=== PATIENT | female | born 1960 | race Caucasian/White ===

== ENCOUNTER 2019-03-27 01:13 | Inpatient (IN) | payer BC ==
[2019-03-27] MEDS ORDERED: methylPREDNISolone 125 MG* 2 ML VIAL IV ONE (01:59)
[2019-03-27] MEDS ORDERED: Albuterol 0.5% CONC NEB.SOL* 5 MG/ML 20 ml BOT INH ONE (01:59)
[2019-03-27] MEDS ORDERED: LORazepam INJ* 2 MG/ML 1 ML VIAL IV PUSH ONE (01:59)
[2019-03-27] MEDS ORDERED: Lorazepam PYXIS KEY PRN ×2 (02:00→05:09)
--- NOTE | 2019-03-27 02:04 | ED ---
Shortness of Breath - HPI Summary HPI Summary: Pt is a 58 y/o F presenting to the ED with a chief complaint of shortness of breath first onset 03/25/19. She had a pretty bad cold onset that date, and today they came up to [facility] to clean their cottage, and had more breathing issues after that. She currently reports nausea, chills, cough, and anxiety associated with the shortness of breath. She denies fever, as well as hx of asthma or COPD. She is a current every day smoker. - History of Current Complaint Chief Complaint: EDShortnessOfBreath Time Seen by Provider: 03/27/19 01:55 Hx Obtained From: Patient, Family/Bone Grinder Onset/Duration: Sudden Onset, Lasting Days, Still Present Timing: Constant Current Severity: Moderate Dyspnea At: Rest Aggrevating Factors: Nothing Alleviating Factors: Nothing Associated Signs & Symptoms: Cough (Nonproductive), Chills - Allergy/Home Medications Allergies/Adverse Reactions: Allergies Allergy/AdvReac Type Severity Reaction Status Date / Time No Known Allergies Allergy Verified 03/27/19 01:22 Home Medications: Home Medications NK [No Home Medications Reported] 03/27/19 [History Confirmed 03/27/19] PMH/Surg Hx/FS Hx/Imm Hx Previously Healthy: Yes Endocrine/Hematology History: Denies: Hx Diabetes Respiratory History: Denies: Hx Asthma, Hx Chronic Obstructive Pulmonary Disease (COPD) Infectious Disease History: No Infectious Disease History: Denies: Traveled Outside the [place] in Last 30 Days - Family History Known Family History: Negative: Diabetes - Social History Alcohol Use: Weekly Hx Substance Use: No Substance Use Type: Reports: None Hx Tobacco Use: Yes Smoking Status (MU): Heavy Every Day Tobacco Smoker Review of Systems Positive: Chills. Negative: Fever Positive: Shortness Of Breath Positive: Nausea Positive: Anxious All Other Systems Reviewed And Are Negative: Yes Physical Exam - Summary Physical Exam Summary: Appearance: Well-appearing, Well-nourished, lying in bed comfortably Skin: Warm, dry, no obvious rash Eyes: sclera anicteric, no conjunctival pallor ENT: mucous membranes moist, pharynx appears normal Neck: Supple, nontender Respiratory: Bilateral wheezes Cardiovascular: Normal S1, S2. No murmurs. Normal distal pulses in tibial and radial bilaterally. Abdomen: Soft, nontender, normal active bowel sounds present Musculoskeletal: Normal, Strength/ROM Intact Neurological: A&Ox3, awake and alert, mentation is normal, speech is fluent and appropriate Psychiatric: affect is normal, does not appear anxious or depressed Triage Information Reviewed: Yes Vital Signs On Initial Exam: Initial Vitals Temp Pulse Resp BP Pulse Ox 98.2 F 110 22 164/105 84 03/27/19 01:15 03/27/19 01:15 03/27/19 01:15 03/27/19 01:15 03/27/19 01:15 Vital Signs Reviewed: Yes Diagnostics - Vital Signs Vital Signs Temp Pulse Resp BP Pulse Ox 03/27/19 01:24 93 03/27/19 01:15 98.2 F 110 22 164/105 84 - Laboratory Result Diagrams: 03/30/19 05:42 03/30/19 05:42 Lab Statement: Any lab studies that have been ordered have been reviewed, and results considered in the medical decision making process. - Radiology CXR Radiology Interpretation Completed By: ED Physician Summary of Radiographic Findings: No acute process. Pending official radiology report. - EKG 0156 Cardiac Rate: Tachycardia - 115bpm EKG Rhythm: Sinus Tachycardia ST Segment: Normal Ectopy: None Summary of EKG Findings: EKG at 0156 shows sinus tachycardia but is otherwise normal. Artifacts present in various leads d/t pt breathing. No STEMI. Course/Dx - Course Course Of Treatment: Pt is a 58 y/o F presenting to the ED with a chief complaint of shortness of breath first onset 03/25/19. She currently reports nausea, chills, and anxiety associated with the shortness of breath. She denies fever, as well as hx of asthma or COPD. She is a current every day smoker. EKG at 0156 shows sinus tachycardia but is otherwise normal. Artifacts present in various leads d/t pt breathing. No STEMI. CXR shows no acute process, pending official radiology report. In the ED course, the pt was given breathing treatments as well as Lorazepam to alleviate her anxiety. I spoke to Dr. Delacruz at 0342 about the pt's condition who will be accepting her to [facility] with a dx of COPD. - Diagnoses Provider Diagnoses: COPD (chronic obstructive pulmonary disease), COPD exacerbation Discharge - Sign-Out/Discharge Documenting (check all that apply): Patient Departure Patient Received Moderate/Deep Sedation with Procedure: No - Discharge Plan Condition: Stable Disposition: ADMITTED TO [facility] - Billing Disposition and Condition Condition: STABLE Disposition: Admitted to [facility] - Attestation Statements Document Initiated by Alyssa: Yes Documenting Scribe: Dalia Reardon Provider For Whom Alyssa is Documenting (Include Credential): Romeo Carias MD. Scribe Attestation: I, Dalia Reardon, scribed for Romeo Carias MD. on 03/31/19 at 0408. Scribe Documentation Reviewed: Yes Provider Attestation: The documentation as recorded by the Dalia alexander accurately reflects the service I personally performed and the decisions made by me, Romeo Carias MD. Status of Scribe Document: Viewed Consult Consult: I spoke to Dr. Delacruz at 0342 about the pt's condition who will be accepting her to [facility] with a dx of COPD.
[2019-03-27] MEDS ORDERED: Lorazepam PYXIS KEY ONE (02:05)
[2019-03-27 02:20] LABS: ABS Lymphocytes 0.7 10^3/ul (1.0-4.8); ABS Monocytes 0.5 10^3/ul (0-0.8); ABS Neutrophils 10.4 10^3/ul (1.5-7.7); Eosinophil % 0.2 %; Hematocrit 44 % (35-47); Hemoglobin 14.9 g/dL (12.0-16.0); Lymphocyte % 5.9 %; Mean Corpuscular HGB Conc 34 g/dL (31-36); Mean Corpuscular Hemoglobin 33 pg (27-31); Mean Corpuscular Volume 98 fL (80-97); Mean Platelet Volume 7.1 fL (7.4-10.4); Platelet Count 262 10^3/uL (150-450); Red Blood Count 4.51 10^6 /uL (3.70-4.87); Red Cell Distribution Width 13 % (10.5-15); White Blood Count 11.5 10^3/uL (3.5-10.8)
[2019-03-27 02:44] LABS: Albumin 4.7 g/dL (3.2-5.2); Albumin/Globulin Ratio 1.4 (1-3); BUN/Creatinine Ratio 16.7 (8-20); Calcium 9.2 mg/dL (8.6-10.3); EGFR African American 186.9 (>60); EGFR Non-African American 154.4 (>60); Globulin 3.3 g/dL (2-4); Potassium 3.8 mmol/L (3.5-5.0); Total Bilirubin 0.3 mg/dL (0.2-1.0)
[2019-03-27 02:46] LABS: Troponin I 0.01 ng/mL (<0.04)
[2019-03-27] MEDS ORDERED: Azithromycin 500 mg/250 ml NS 500 MG/250 ML BAG IVPB ONE (05:01)
[2019-03-27] MEDS ORDERED: LORazepam INJ* 2 MG/ML 1 ML VIAL IV PUSH PRN (05:09)
[2019-03-27] MEDS ORDERED: Nicotine* 4MG (FRUIT FLAVOR) GUM PO PRN (05:14)
[2019-03-27] MEDS ORDERED: Iohexol 350* (CONTRAST) 500 ML MDV IV ONE (05:32)
[2019-03-27] MEDS: cefTRIAXone(*) 1 GM in NS 0.9% 50 ML* 50 ML IVPB SCH (06:01)
[2019-03-27] MEDS: Enoxaparin(*) 40 MG/0.4 ML SYR SUBCUT SCH (06:07)
[2019-03-27] MEDS ORDERED: Acetaminophen TAB* 325 MG PO PRN (06:47)
[2019-03-27] MEDS ORDERED: Ondansetron INJ* 2 MG/ML VIAL IV PRN (06:47)
[2019-03-27] MEDS: Albuterol 2.5 MG/3 ML NEB.SOL* (0.083%) INH SCH ×5 (06:56→23:06)
--- NOTE | 2019-03-27 08:12 | HP ---
HISTORY AND PHYSICAL: DATE OF ADMISSION: 03/27/19 PROVIDER: Virgilio Monk NP ATTENDING PHYSICIAN: Dr. Bri Delacruz* (dictated by Virgilio Monk NP) PRIMARY CARE PROVIDER: None. She does report that Mariel Alaniz is her OB-EGG SEPARATOR. CHIEF COMPLAINT: Weakness, anxiety, sore throat. HISTORY OF PRESENT ILLNESS: Ms. Dumas is a 58-year-old female with no known medical history other than lumpectomy, who presented to the ER overnight, was concerned for subjective fever and chills, productive cough, and increased anxiety. The history is supplemented by the patient's family, as she is initially somewhat slow to respond and tachypneic. Over the course of the evaluation, she became more alert and was able to answer more appropriately and more consistently with her baseline. She is accompanied by her , Jamal and her sons Rafy and Horacio. Per the patient and her family, she started with the reported sore throat on Friday evening. This progressed into a productive cough. On Friday, the family went to their cottage in [place], though they are originally from [place], and [facility] She progressed to having alternating chills and hot flashes as well as having nausea, increased anxiety, and weakness. Her family brought her in for further evaluation. When she presented to the ER, she had an oxygen level of 84% on room air. She was placed on oxygen via nasal cannula. Prior to contacting the hospitalist, the patient was escalated the Vapotherm due to increased work of breathing. She had received IV methylprednisolone and lorazepam as well as a nebulizer treatment. She reports mild improvement on the Vapotherm. PAST MEDICAL HISTORY: She denies any known history. Her reports that she had 2 C-sections, one in 1980 and 1987 and a history of a lumpectomy in 1995. HOME MEDICATIONS: None. ALLERGIES: No known allergies. FAMILY HISTORY: She is unable to provide at this time. SOCIAL HISTORY: She is a current everyday smoker. She reports a smoking history of 40 years or more. She reports that she smoked half a pack a day, but her states that it is close to 2 packs per day. She report occasional alcohol use. Denies any illicit drug use. She works at a school. She is . She has children, her sons were accompanying her. Her Jamal is her surrogate decision maker in the event of emergency. REVIEW OF SYSTEMS: A 12-point review of systems was attempted and obtained. All pertinent positives and negatives as per the HPI. All those not mentioned are negative. PHYSICAL EXAMINATION GENERAL: This is a middle-aged, female sitting up in the ED stretcher at approximately 90 degrees. She is tachypneic even while resting and appears to be in mild distress. VITAL SIGNS: Temperature 100.3, pulse rate 102, respiratory rate 28, O2 saturation is 97% on Vapotherm at 40 L with 60% O2, blood pressure is 151/80. HEENT: Head is atraumatic, normocephalic. Pupils are equal and round. Extraocular movements are intact. Oral mucosa is moist. Oropharynx appears within normal limits with no erythema or exudates. NECK: Supple with full range of motion. No lymphadenopathy appreciated. No JVD noted. CARDIAC: Normal S1, S2. Heart sounds regular rate and rhythm. She is tachycardic. No murmurs appreciated. No peripheral edema noted. Peripheral pulses are intact and equal bilaterally in the upper or lower extremities. RESPIRATORY: There is fair aeration throughout all lung bradshaw. Lung sounds are tight with inspiratory and expiratory wheezing noted. ABDOMEN: Soft, nontender, nondistended with normoactive bowel sounds. There is no hepatosplenomegaly. There is no guarding or rebound tenderness. MUSCULOSKELETAL: There is no clubbing or cyanosis. There is full range of motion in all 4 extremities. SKIN: Warm and dry and grossly intact. NEURO: She is alert and oriented x3. Mentation improved over the course of the conversation. Speech is clear though difficult due to tachypnea. PSYCH: She is anxious, but affect is appropriate. DIAGNOSTIC STUDIES/LAB DATA: CBC: WBC 11.5, hemoglobin 14.9, hematocrit 44, platelet count 262. CMP: Sodium 131, potassium 3.8, chloride 97, carbon dioxide 24, BUN 7, creatinine 0.42, glucose 135, lactic acid 1.7, calcium 9.2. Total bilirubin 0.3, AST 21, ALT 13, alk phos 77. Troponin 0.01. Chest x-ray reviewed, lungs show hyperinflation, no acute process is noted with review report is pending. EKG reviewed and shows sinus tachycardia. No evidence of ST or T-wave changes to indicate acute ischemia. There are no old medical records for review. ASSESSMENT AND PLAN: This is a 58-year-old female with no known past medical history other than remote history of lumpectomy, who presents today with concern for shortness of breath that is progressively worsening and acute hypoxic respiratory failure. She is currently on Vapotherm. I did discuss with her and her family that the goal would due to decrease her work of breathing as well as maintain appropriate oxygenation and gas exchange. For this reason, we will continue her on Vapotherm and move her to the ICU. 1. Acute hypoxic respiratory failure, suspect chronic obstructive pulmonary disease exacerbation. She has not been officially diagnosed with chronic obstructive pulmonary disease, she has never had spirometry performed. With her x- ray and symptoms this does seem to consistent with chronic obstructive pulmonary disease exacerbation in any event. She had concern for acute hypoxic respiratory failure and is now on Vapotherm. She would likely benefit from BiPAP, however, she appears anxious and somewhat resistant to the high flow nasal cannula and does not want to try BiPAP at this time. She has quite a bit of anxiety about being here in the hospital and was very astounded when told she would have to go to the ICU. We did discuss that if her breathing continues to progressively worsen or fails to respond to the current therapies and medications, that we would need to consider BiPAP or perhaps mechanical ventilation. She appears to be very against the mechanical ventilation and this is very upsetting for her. Her family did listen to the conversation and would be open to discussing this further if needed. She is in agreement to continue with the Vapotherm high flow nasal cannula and the steroids and nebulizer treatments. In regards to other supportive care, she is ordered nebulizer treatment and steroids. She will receive these around the clock. There is also p.r.n. Ativan to be utilized for anxiety. CTA of the chest would be indicated, given the acuity of her illness and level of her distress.. She has a low Wells' criteria for pulmonary embolism with a 1.3% risk, however, given her tachycardia and other symptoms. as well as her lack of medical care and evaluation, it will be beneficial to get a baseline CT and I will include contrast to fully evaluate the lungs. In the event, she is unable to tolerate laying flat, we will downgrade this test to a CT of the chest. I will also cover her for pneumonia. It may be that she is presenting and is not yet capturing on the x-ray though she does have a bit of a white count and again she is quickly decompensating in the few hours of time that she has been here. We will start her on azithromycin and ceftriaxone, this can be escalated as needed, but may also be deescalated if not needed. I will also order her guaifenesin ER and we will check a strep pneumo and legionella urine antigen. I would also like to get a baseline ABG given that she is on Vapotherm and may be requiring BiPAP as well. This has all been reviewed with her family and the patient. 2. Nicotine dependence. She has an extensive smoking history. Approximately 5 to 10 minutes were spent in counseling with the patient and her family regarding smoking and decreasing her risk for continued symptoms by quitting smoking. We discussed the effects are cumulative and that benefit could still be gained from quitting smoking. During her admission here, she will be ordered nicotine replacement therapy and smoking cessation education. 3. FEN. She is ordered a regular diet. 4. DVT prophylaxis. She is ordered subcu Lovenox. 5. Code status. She is a full code. She clearly has stated that she does not want intubation, but her family would like to further discuss this with her when she is less agitated. At this time, she remains a full code, which is appropriate. 6. Disposition. She will be admitted as an inpatient with an expected length of stay of 3 to 5 days given the severity of her respiratory failure and symptoms at this time. TIME SPENT: Approximately 75 minutes was spent on this admission, which includes collecting history and performing physical assessment, physical examination, reviewing the plan of care, and plan of care updates with the patient and her family. Plan of care was also reviewed with my attending, Dr. Bri Delacruz, who is in agreement. VIRGILIO MONK, HERNÁN [id number]/[facility] #: [id number] MOLLY
[2019-03-27] MEDS: guaiFENesin ER TAB 600 MG PO SCH ×2 (09:18→20:25)
[2019-03-27] MEDS: Nicotine PATCH 21 MG/24 HR* PATCH TRANSDERM SCH (09:49)
[2019-03-27] MEDS: methylPREDNISolone SOD 40 MG* 1 ML VIAL IV SCH (14:09)
[2019-03-27] MEDS ORDERED: Albuterol/Ipratropium NEB.SOL* Albuterol 2.5 MG/Ipratropium 0.5 MG 3 ML INH PRN (15:19)
--- NOTE | 2019-03-27 15:22 | PN ---
Hospitalist Progress Note Date of Service: 03/27/19 Pt examined at bedside Feels better.Continue Steroids and Antibiotics.Plan per h and p dictated a few hours ago Will switch to PO ativan prn for anxiety Ct findings discussed Will need outpatient f/u for lung nodules and poss thyroid nodule
[2019-03-27] MEDS: LORazepam TAB(*) 0.5 MG PO PRN (15:58)
[2019-03-27] MEDS: Nicotine Patch Removal NOTE PATCH OFF SCH (20:26)
[2019-03-28] MEDS: methylPREDNISolone SOD 40 MG* 1 ML VIAL IV SCH ×2 (02:13→14:52)
[2019-03-28] MEDS: LORazepam TAB(*) 0.5 MG PO PRN ×3 (02:34→23:15)
[2019-03-28] MEDS: Albuterol 2.5 MG/3 ML NEB.SOL* (0.083%) INH SCH ×4 (03:19→19:09)
[2019-03-28] MEDS: cefTRIAXone(*) 1 GM in NS 0.9% 50 ML* 50 ML IVPB SCH (05:38)
[2019-03-28] MEDS: Enoxaparin(*) 40 MG/0.4 ML SYR SUBCUT SCH (05:43)
[2019-03-28 06:02] LABS: ABS Lymphocytes 0.6 10^3/ul (1.0-4.8); ABS Monocytes 0.3 10^3/ul (0-0.8); ABS Neutrophils 11.3 10^3/ul (1.5-7.7); Hematocrit 41 % (35-47); Hemoglobin 13.8 g/dL (12.0-16.0); Lymphocyte % 4.8 %; Mean Corpuscular HGB Conc 34 g/dL (31-36); Mean Corpuscular Hemoglobin 33 pg (27-31); Mean Corpuscular Volume 98 fL (80-97); Mean Platelet Volume 7.6 fL (7.4-10.4); Platelet Count 247 10^3/uL (150-450); Red Blood Count 4.18 10^6 /uL (3.70-4.87); Red Cell Distribution Width 13 % (10.5-15); White Blood Count 12.1 10^3/uL (3.5-10.8)
[2019-03-28] MEDS: Azithromycin IV(*) 250 MG in NS 0.9% 250 ML* 250 ML IVPB SCH (06:07)
[2019-03-28 06:18] LABS: BUN/Creatinine Ratio 36.4 (8-20); Calcium 9.5 mg/dL (8.6-10.3); EGFR African American 177.1 (>60); EGFR Non-African American 146.4 (>60); Potassium 4.3 mmol/L (3.5-5.0)
[2019-03-28] MEDS: Nicotine PATCH 21 MG/24 HR* PATCH TRANSDERM SCH (09:02)
[2019-03-28] MEDS: guaiFENesin ER TAB 600 MG PO SCH (09:02)
--- NOTE | 2019-03-28 15:17 | PN ---
Subjective Date of Service: 03/28/19 Interval History: Reports improvement in breathing.Still on vapotherm Objective Active Medications: Acetaminophen (Tylenol Tab*) 650 mg PO Q4H PRN PRN Reason: FEVER/PAIN Albuterol (Ventolin 2.5 Mg/3 Ml Neb.Margarita*) 2.5 mg INH RT.[id number] AWAKE [facility] Last Admin: 03/28/19 13:00 Dose: 2.5 mg Albuterol/Ipratropium (Duoneb (Albuterol 2.5 Mg/Ipratropium 0.5 Mg)) 1 neb INH Q4H PRN PRN Reason: SOB/WHEEZING Enoxaparin Sodium (Lovenox(*)) 40 mg SUBCUT Q24H [facility] Last Admin: 03/28/19 05:43 Dose: 40 mg Guaifenesin (Mucinex*) 1,200 mg PO BID [facility] Last Admin: 03/28/19 09:02 Dose: 1,200 mg Azithromycin 250 mg/ Sodium (Chloride) 250 mls @ 250 mls/hr IVPB Q24H [facility] Last Admin: 03/28/19 06:07 Dose: 250 mls/hr Ceftriaxone Sodium 1 gm/ (Sodium Chloride) 50 mls @ 200 mls/hr IVPB Q24H [facility] Last Admin: 03/28/19 05:38 Dose: 200 mls/hr Lorazepam (Ativan Tab(*)) 0.5 mg PO Q4H PRN PRN Reason: ANXIETY Last Admin: 03/28/19 14:52 Dose: 0.5 mg Methylprednisolone Sodium Succinate (Solu-Medrol 40 Mg) 60 mg IV Q12H [facility] Last Admin: 03/28/19 14:52 Dose: 60 mg Miscellaneous (Ativan Pyxis Williamson) 1 ea N/A .ATIVAN IV WILLIAMSON PRN PRN Reason: PYXIS WILLIAMSON Miscellaneous (Ativan Pyxis Williamson) 1 ea N/A .ATIVAN IV WILLIAMSON PRN PRN Reason: PYXIS WILLIAMSON Nicotine (Nicotine Patch 21 Mg/24 Hr*) 1 patch TRANSDERM DAILY@0800 [facility] Last Admin: 03/28/19 09:02 Dose: 1 patch Nicotine Polacrilex (Nicotine Gum*) 4 mg PO Q2H PRN PRN Reason: CRAVING Ondansetron HCl (Zofran Inj*) 4 mg IV Q6H PRN PRN Reason: NAUSEA Pharmacy Profile Note (Nicotine Patch Removal Note*) 1 note PATCH OFF 2100 LISHA Last Admin: 03/27/19 20:26 Dose: Not Given Vital Signs - 8 hr 03/28/19 03/28/19 03/28/19 08:00 09:00 10:00 Temperature Pulse Rate 85 105 101 Respiratory 23 31 32 Rate Blood Pressure 99/57 142/77 124/74 (mmHg) O2 Sat by Pulse 96 95 94 Oximetry 03/28/19 03/28/19 03/28/19 11:00 11:21 11:39 Temperature 97.9 F Pulse Rate 91 Respiratory 27 30 Rate Blood Pressure 111/79 (mmHg) O2 Sat by Pulse 100 Oximetry 03/28/19 03/28/19 03/28/19 12:00 13:00 14:00 Temperature Pulse Rate 101 112 114 Respiratory 30 26 31 Rate Blood Pressure 111/30 91/72 115/67 (mmHg) O2 Sat by Pulse 97 96 96 Oximetry 03/28/19 03/28/19 03/28/19 14:01 14:33 14:52 Temperature Pulse Rate 115 Respiratory 27 29 Rate Blood Pressure (mmHg) O2 Sat by Pulse 97 96 Oximetry 03/28/19 03/28/19 15:00 15:01 Temperature Pulse Rate 117 116 Respiratory 29 30 Rate Blood Pressure 126/77 (mmHg) O2 Sat by Pulse 95 94 Oximetry Oxygen Devices in Use Now: High Flow Nasal Cannula Eyes: No Scleral Icterus Ears/Nose/Mouth/Throat: NL Teeth, Lips, Gums Neck: NL Appearance and Movements; NL JVP Respiratory: Symmetrical Chest Expansion and Respiratory Effort, - - bilateral wheezes and rhonchi Cardiovascular: NL Sounds; No Murmurs; No JVD Abdominal: NL Sounds; No Tenderness; No Distention Skin: No Rash or Ulcers Neurological: Alert and Oriented x 3 Result Diagrams: 03/28/19 05:35 03/28/19 05:35 Microbiology and Other Data: Microbiology 03/27/19 02:11 Aerobic Blood Culture - Preliminary Blood Venous No Growth Day 1 Anaerobic Blood Culture - Preliminary No Growth Day 1 03/27/19 02:11 Aerobic Blood Culture - Preliminary Blood Venous No Growth Day 1 Anaerobic Blood Culture - Preliminary No Growth Day 1 03/27/19 08:10 Legionella Urinary Antigen - Final Urine Negative Legionella Antigen Streptococcus pneumoniae Ag Screen - Final Negative S. pneumo Antigen 03/27/19 06:06 Nasal Screen MRSA (PCR) - Final Nasal Mrsa Not Detected Assess/Plan/Problems-Billing Assessment: - Patient Problems (1) Acute hypoxemic respiratory failure Current Visit: Yes Status: Acute Code(s): J96.01 - ACUTE RESPIRATORY FAILURE WITH HYPOXIA SNOMED Code(s): 536813721 Comment: sec to copd exacerbation on vapotherm being titrated down (2) COPD exacerbation Current Visit: Yes Status: Acute Code(s): J44.1 - CHRONIC OBSTRUCTIVE PULMONARY DISEASE W (ACUTE) EXACERBATION SNOMED Code(s): 783678693 Comment: Continue IV solumedrol, Ceftriaxone,Azithromycin,Duoneb Improving clinical status Wean to NC today and keep titrating oxygen down Counselled on smoking cessation (3) Pulmonary nodules Current Visit: Yes Status: Acute Code(s): R91.8 - OTHER NONSPECIFIC ABNORMAL FINDING OF LUNG FIELD SNOMED Code(s): 379288395 Comment: Seen on CT Discussed with patient She lives in [place] Needs outpatient Pulmonary f/u for f/u imaging and eval for malignancy in the future Wants to f/u at outpatient in the [facility].Can f/u with [facility]les[facility] [place] office ([facility]) (4) Thyroid nodule Current Visit: Yes Status: Acute Code(s): E04.1 - NONTOXIC SINGLE THYROID NODULE SNOMED Code(s): 576372270 Comment: Wants to do the thyroid ultrasound as outpt and f/u in [facility]
[2019-03-28] MEDS: Nicotine Patch Removal NOTE PATCH OFF SCH (21:26)
[2019-03-29] MEDS: Albuterol 2.5 MG/3 ML NEB.SOL* (0.083%) INH SCH ×4 (01:17→19:06)
[2019-03-29] MEDS: methylPREDNISolone SOD 40 MG* 1 ML VIAL IV SCH ×2 (02:27→15:21)
[2019-03-29] MEDS: Enoxaparin(*) 40 MG/0.4 ML SYR SUBCUT SCH (05:36)
[2019-03-29] MEDS: cefTRIAXone(*) 1 GM in NS 0.9% 50 ML* 50 ML IVPB SCH (05:36)
[2019-03-29 05:57] LABS: ABS Lymphocytes 0.7 10^3/ul (1.0-4.8); ABS Monocytes 0.3 10^3/ul (0-0.8); ABS Neutrophils 9.8 10^3/ul (1.5-7.7); Hematocrit 41 % (35-47); Lymphocyte % 6.8 %; Mean Corpuscular HGB Conc 34 g/dL (31-36); Mean Corpuscular Hemoglobin 33 pg (27-31); Mean Corpuscular Volume 98 fL (80-97); Mean Platelet Volume 7.2 fL (7.4-10.4); Platelet Count 268 10^3/uL (150-450); Red Blood Count 4.21 10^6 /uL (3.70-4.87); Red Cell Distribution Width 13 % (10.5-15); White Blood Count 10.8 10^3/uL (3.5-10.8)
[2019-03-29] MEDS: Azithromycin IV(*) 250 MG in NS 0.9% 250 ML* 250 ML IVPB SCH (06:02)
[2019-03-29 06:16] LABS: BUN/Creatinine Ratio 34.8 (8-20); Calcium 9.4 mg/dL (8.6-10.3); EGFR African American 168.2 (>60); Potassium 4.4 mmol/L (3.5-5.0)
--- NOTE | 2019-03-29 08:36 | PN ---
Subjective Date of Service: 03/29/19 Interval History: HD # 3 on 03/29 58F PMH heavy tob use who presented with new hypoxic resp failure with likely underlying COPD and acute exacerbation possibly 2/2 to CAP requiring vapotherm, undx until this point. Overnight, no acute events, on 5L NC other VSS, tried to wean to 2L, couldn't tolerate Labs: Mild hypoNA, improving This morning seen with at bedside, she is feeling better, discussion about underlying COPD/Emphysema and what drove her sx. Discussed steps towards getting home which is lower O2 requirements and continued monitoring on medical floor, discussed may need PRN O2 going home. She reports understanding with [employer]. She has less SOB, still with cough, no chest pain, appetite is good, no GI MSK complaints, mildly anxious. Objective Active Medications: Acetaminophen (Tylenol Tab*) 650 mg PO Q4H PRN PRN Reason: FEVER/PAIN Albuterol (Ventolin 2.5 Mg/3 Ml Neb.Margarita*) 2.5 mg INH [id number] AWAKE [facility] Last Admin: 03/29/19 08:25 Dose: Not Given Albuterol/Ipratropium (Duoneb (Albuterol 2.5 Mg/Ipratropium 0.5 Mg)) 1 neb INH Q4H PRN PRN Reason: SOB/WHEEZING Enoxaparin Sodium (Lovenox(*)) 40 mg SUBCUT Q24H [facility] Last Admin: 03/29/19 05:36 Dose: 40 mg Azithromycin 250 mg/ Sodium (Chloride) 250 mls @ 250 mls/hr IVPB Q24H [facility] Last Admin: 03/29/19 06:02 Dose: 250 mls/hr Ceftriaxone Sodium 1 gm/ (Sodium Chloride) 50 mls @ 200 mls/hr IVPB Q24H [facility] Last Admin: 03/29/19 05:36 Dose: 200 mls/hr Lorazepam (Ativan Tab(*)) 0.5 mg PO Q4H PRN PRN Reason: ANXIETY Last Admin: 03/28/19 23:15 Dose: 0.5 mg Methylprednisolone Sodium Succinate (Solu-Medrol 40 Mg) 60 mg IV Q12H [facility] Last Admin: 03/29/19 02:27 Dose: 60 mg Miscellaneous (Ativan Pyxis Williamson) 1 ea N/A .ATIVAN IV WILLIAMSON PRN PRN Reason: PYXIS WILLIAMSON Miscellaneous (Ativan Pyxis Williamson) 1 ea N/A .ATIVAN IV WILLIAMSON PRN PRN Reason: PYXIS WILLIAMSON Nicotine (Nicotine Patch 21 Mg/24 Hr*) 1 patch TRANSDERM DAILY@0800 [facility] Last Admin: 03/28/19 09:02 Dose: 1 patch Nicotine Polacrilex (Nicotine Gum*) 4 mg PO Q2H PRN PRN Reason: CRAVING Ondansetron HCl (Zofran Inj*) 4 mg IV Q6H PRN PRN Reason: NAUSEA Pharmacy Profile Note (Nicotine Patch Removal Note*) 1 note PATCH OFF 2100 [facility] Last Admin: 03/28/19 21:26 Dose: 1 note Vital Signs - 8 hr 03/29/19 03/29/19 03/29/19 01:00 02:00 03:00 Temperature Pulse Rate 74 80 65 Respiratory 24 25 22 Rate Blood Pressure 132/67 128/70 142/72 (mmHg) O2 Sat by Pulse 97 98 100 Oximetry 03/29/19 03/29/19 03/29/19 04:00 05:00 06:00 Temperature 98.4 F Pulse Rate 69 79 72 Respiratory 23 27 24 Rate Blood Pressure 128/65 118/73 (mmHg) O2 Sat by Pulse 97 91 95 Oximetry 03/29/19 07:47 Temperature 98.5 F Pulse Rate Respiratory Rate Blood Pressure (mmHg) O2 Sat by Pulse Oximetry Oxygen Devices in Use Now: Nasal Cannula Appearance: Thin woman in NAD Ears/Nose/Mouth/Throat: NL Teeth, Lips, Gums, Clear Oropharnyx Neck: NL Appearance and Movements; NL JVP, Trachea Midline Respiratory: Symmetrical Chest Expansion and Respiratory Effort, - - Diffuse I/ E wheeze with rhonchi Cardiovascular: NL Sounds; No Murmurs; No JVD, RRR - Tachcardic Abdominal: NL Sounds; No Tenderness; No Distention, No Hepatosplenomegaly Lymphatic: No Cervical Adenopathy Extremities: No Edema Skin: No Rash or Ulcers Neurological: Alert and Oriented x 3 Result Diagrams: 03/29/19 05:50 03/29/19 05:50 Microbiology and Other Data: Microbiology 03/27/19 02:11 Aerobic Blood Culture - Preliminary Blood Venous No Growth Day 1 Anaerobic Blood Culture - Preliminary No Growth Day 1 03/27/19 02:11 Aerobic Blood Culture - Preliminary Blood Venous No Growth Day 1 Anaerobic Blood Culture - Preliminary No Growth Day 1 03/27/19 08:10 Legionella Urinary Antigen - Final Urine Negative Legionella Antigen Streptococcus pneumoniae Ag Screen - Final Negative S. pneumo Antigen 03/27/19 06:06 Nasal Screen MRSA (PCR) - Final Nasal Mrsa Not Detected EKG Data: Sinus tachycardia Assess/Plan/Problems-Billing Assessment: 58F PMH heavy tob use who presented with new hypoxic resp failure with likely underlying COPD and acute exacerbation possibly 2/2 to CAP requiring vapotherm, undx until this point. - Patient Problems (1) Acute hypoxemic respiratory failure Current Visit: Yes Status: Acute Code(s): J96.01 - ACUTE RESPIRATORY FAILURE WITH HYPOXIA SNOMED Code(s): 773379503 Comment: - As per above liekly COPD (formerly undx with no PFTS on file), exacerbation and possible CAP - Requiring Vapotherm, now on 5L NC - Likely safe to d/c out of ICU on 03/29 (2) COPD exacerbation Current Visit: Yes Status: Acute Code(s): J44.1 - CHRONIC OBSTRUCTIVE PULMONARY DISEASE W (ACUTE) EXACERBATION SNOMED Code(s): 391622303 Comment: - Continue IV solumedrol 60q12, will deescelate to oral pred on 03/30 - Day 2/ on 03/29 Ceftriaxone, Azithromycin - Continue Duoneb, needs outpt optimization with LAMA/ICS inhaler therapy on d/c - Needs formal PFT on d/c - Counselled on smoking cessation (3) Pneumonia Current Visit: Yes Status: Acute Code(s): J18.9 - PNEUMONIA, UNSPECIFIED ORGANISM SNOMED Code(s): 733354761 Comment: - Mild leukocytosis on admission, not captured on imaging, clinically improving on abx, and will continue for antinflammatory properties - CTX Day 2/_-(5) Azithro Day 2/5 on 03/29 (4) Pulmonary nodules Current Visit: Yes Status: Acute Code(s): R91.8 - OTHER NONSPECIFIC ABNORMAL FINDING OF LUNG FIELD SNOMED Code(s): 310464952 Comment: - Seen on CT - Needs outpatient Pulmonary f/u for f/u imaging and eval for malignancy in the future - Wants to f/u at outpatient in the [facility].Can f/u with Antonio Oglesby [place] office ([facility]) (5) Thyroid nodule Current Visit: Yes Status: Acute Code(s): E04.1 - NONTOXIC SINGLE THYROID NODULE SNOMED Code(s): 149773400 Comment: - Wants to do the thyroid ultrasound as outpt and f/u in [facility] (6) Nicotine dependence Current Visit: Yes Status: Acute Code(s): F17.200 - NICOTINE DEPENDENCE, UNSPECIFIED, UNCOMPLICATED SNOMED Code(s): 31107466 Comment: - NRT (7) Anxiety Current Visit: Yes Status: Acute Code(s): F41.9 - ANXIETY DISORDER, UNSPECIFIED SNOMED Code(s): 43441199 Comment: - Started on Lorazepam, wean as able - Possible Chantix on d/c (8) DVT prophylaxis Current Visit: Yes Status: Acute Code(s): Z29.9 - ENCOUNTER FOR PROPHYLACTIC MEASURES, UNSPECIFIED SNOMED Code(s): 464442332 Comment: - Lovenox (9) Full code status Current Visit: Yes Status: Acute Code(s): Z78.9 - OTHER SPECIFIED HEALTH STATUS SNOMED Code(s): 477790954 Status and Disposition: Inpatient, xfer to 4S tele Needs work note
[2019-03-29] MEDS: Nicotine PATCH 21 MG/24 HR* PATCH TRANSDERM SCH (09:56)
[2019-03-29] MEDS: LORazepam TAB(*) 0.5 MG PO PRN ×3 (10:59→21:06)
[2019-03-29] MEDS: Nicotine Patch Removal NOTE PATCH OFF SCH (20:00)
[2019-03-29] MEDS ORDERED: guaiFENesin ER TAB 600 MG PO ONE (20:49)
[2019-03-30] MEDS: Albuterol 2.5 MG/3 ML NEB.SOL* (0.083%) INH SCH ×4 (02:14→20:09)
[2019-03-30] MEDS: methylPREDNISolone SOD 40 MG* 1 ML VIAL IV SCH ×2 (02:20→14:03)
[2019-03-30] MEDS: cefTRIAXone(*) 1 GM in NS 0.9% 50 ML* 50 ML IVPB SCH (05:01)
[2019-03-30] MEDS: Azithromycin IV(*) 250 MG in NS 0.9% 250 ML* 250 ML IVPB SCH (05:51)
[2019-03-30] MEDS: Enoxaparin(*) 40 MG/0.4 ML SYR SUBCUT SCH (05:51)
[2019-03-30 05:53] LABS: ABS Lymphocytes 0.6 10^3/ul (1.0-4.8); ABS Monocytes 0.2 10^3/ul (0-0.8); ABS Neutrophils 6.2 10^3/ul (1.5-7.7); Hematocrit 40 % (35-47); Hemoglobin 13.6 g/dL (12.0-16.0); Lymphocyte % 8.9 %; Mean Corpuscular HGB Conc 34 g/dL (31-36); Mean Corpuscular Hemoglobin 33 pg (27-31); Mean Corpuscular Volume 98 fL (80-97); Mean Platelet Volume 7.1 fL (7.4-10.4); Platelet Count 256 10^3/uL (150-450); Red Blood Count 4.09 10^6 /uL (3.70-4.87); Red Cell Distribution Width 13 % (10.5-15); White Blood Count 7.1 10^3/uL (3.5-10.8)
[2019-03-30 06:12] LABS: Calcium 9.1 mg/dL (8.6-10.3); EGFR African American 186.9 (>60); EGFR Non-African American 154.4 (>60); Potassium 4.1 mmol/L (3.5-5.0)
--- NOTE | 2019-03-30 07:30 | PN ---
Subjective Date of Service: 03/30/19 Interval History: HD # 4 on 03/30 58F PMH heavy tob use who presented with new hypoxic resp failure with likely underlying COPD and acute exacerbation possibly 2/2 to CAP requiring vapotherm, undx until this point. Overnight, no acute events, on 5L NC other VSS, tried to wean to 2L, couldn't tolerate, did walk with PT Labs: Normal This afternoon seen with family she is feeling well, getting close to baseline feeling the need to cough. No CP, mild SOB, no GI or MSK compalitns Objective Active Medications: Acetaminophen (Tylenol Tab*) 650 mg PO Q4H PRN PRN Reason: FEVER/PAIN Albuterol (Ventolin 2.5 Mg/3 Ml Neb.Mragarita*) 2.5 mg INH [id number] AWAKE [facility] Last Admin: 03/30/19 02:14 Dose: Not Given Albuterol/Ipratropium (Duoneb (Albuterol 2.5 Mg/Ipratropium 0.5 Mg)) 1 neb INH Q4H PRN PRN Reason: SOB/WHEEZING Enoxaparin Sodium (Lovenox(*)) 40 mg SUBCUT Q24H [facility] Last Admin: 03/30/19 05:51 Dose: 40 mg Azithromycin 250 mg/ Sodium (Chloride) 250 mls @ 250 mls/hr IVPB Q24H [facility] Last Admin: 03/30/19 05:51 Dose: 250 mls/hr Ceftriaxone Sodium 1 gm/ (Sodium Chloride) 50 mls @ 200 mls/hr IVPB Q24H [facility] Last Admin: 03/30/19 05:01 Dose: 200 mls/hr Lorazepam (Ativan Tab(*)) 0.5 mg PO Q4H PRN PRN Reason: ANXIETY Last Admin: 03/29/19 21:06 Dose: 0.5 mg Methylprednisolone Sodium Succinate (Solu-Medrol 40 Mg) 60 mg IV Q12H [facility] Last Admin: 03/30/19 02:20 Dose: 60 mg Miscellaneous (Ativan Pyxis Williamson) 1 ea N/A .ATIVAN IV WILLIAMSON PRN PRN Reason: PYXIS WILLIAMSON Miscellaneous (Ativan Pyxis Williamson) 1 ea N/A .ATIVAN IV WILLIAMSON PRN PRN Reason: PYXIS WILLIAMSON Nicotine (Nicotine Patch 21 Mg/24 Hr*) 1 patch TRANSDERM DAILY@0800 [facility] Last Admin: 03/29/19 09:56 Dose: 1 patch Nicotine Polacrilex (Nicotine Gum*) 4 mg PO Q2H PRN PRN Reason: CRAVING Ondansetron HCl (Zofran Inj*) 4 mg IV Q6H PRN PRN Reason: NAUSEA Pharmacy Profile Note (Nicotine Patch Removal Note*) 1 note PATCH OFF 2100 [facility] Last Admin: 03/29/19 20:00 Dose: 1 note Vital Signs - 8 hr 03/30/19 02:13 Respiratory 18 Rate Oxygen Devices in Use Now: Nasal Cannula Appearance: Pleasant woman in NAD Eyes: No Scleral Icterus Ears/Nose/Mouth/Throat: NL Teeth, Lips, Gums Neck: NL Appearance and Movements; NL JVP, Trachea Midline, No Thyroid Enlargement, Masses Respiratory: Symmetrical Chest Expansion and Respiratory Effort, - - Diffuse rhonchi, mild E wheeze improved Cardiovascular: NL Sounds; No Murmurs; No JVD, RRR Abdominal: NL Sounds; No Tenderness; No Distention Lymphatic: No Cervical Adenopathy, No Axillary Adenopathy Extremities: No Edema Skin: No Rash or Ulcers Neurological: Alert and Oriented x 3 Result Diagrams: 03/30/19 05:42 03/30/19 05:42 Microbiology and Other Data: Microbiology 03/27/19 02:11 Aerobic Blood Culture - Preliminary Blood Venous No Growth Day 1 Anaerobic Blood Culture - Preliminary No Growth Day 1 03/27/19 02:11 Aerobic Blood Culture - Preliminary Blood Venous No Growth Day 1 Anaerobic Blood Culture - Preliminary No Growth Day 1 03/27/19 08:10 Legionella Urinary Antigen - Final Urine Negative Legionella Antigen Streptococcus pneumoniae Ag Screen - Final Negative S. pneumo Antigen 03/27/19 06:06 Nasal Screen MRSA (PCR) - Final Nasal Mrsa Not Detected EKG Data: Sinus tachycardia Assess/Plan/Problems-Billing Assessment: 58F PMH heavy tob use who presented with new hypoxic resp failure with likely underlying COPD and acute exacerbation possibly 2/2 to CAP requiring vapotherm, undx until this point. - Patient Problems (1) Acute hypoxemic respiratory failure Current Visit: Yes Status: Acute Code(s): J96.01 - ACUTE RESPIRATORY FAILURE WITH HYPOXIA SNOMED Code(s): 258042750 Comment: - As per above likely COPD (formerly undx with no PFTS on file), exacerbation and possible CAP - Requiring Vapotherm, now on 5L NC - DC (2) COPD exacerbation Current Visit: Yes Status: Acute Code(s): J44.1 - CHRONIC OBSTRUCTIVE PULMONARY DISEASE W (ACUTE) EXACERBATION SNOMED Code(s): 951430612 Comment: - Continue IV solumedrol 60q12, will deescelate to oral pred on 03/30 - Day 3/ on 03/30 Ceftriaxone, Azithromycin, change to PO tomorrow - Continue Duoneb, needs outpt optimization with LAMA/ICS inhaler therapy start tomorrow - Needs formal PFT on d/c - Counselled on smoking cessation (3) Pneumonia Current Visit: Yes Status: Acute Code(s): J18.9 - PNEUMONIA, UNSPECIFIED ORGANISM SNOMED Code(s): 563564154 Comment: - Mild leukocytosis on admission, not captured on imaging, clinically improving on abx, and will continue for antinflammatory properties - CTX Day /-(5) Azithro Day 3/5 on 03/29 (4) Pulmonary nodules Current Visit: Yes Status: Acute Code(s): R91.8 - OTHER NONSPECIFIC ABNORMAL FINDING OF LUNG FIELD SNOMED Code(s): 049996591 Comment: - Seen on CT - Needs outpatient Pulmonary f/u for f/u imaging and eval for malignancy in the future - Wants to f/u at outpatient in the [facility].Can f/u with Antonio Zhu Dr, [place] office ([facility] [place]) (5) Thyroid nodule Current Visit: Yes Status: Acute Code(s): E04.1 - NONTOXIC SINGLE THYROID NODULE SNOMED Code(s): 698807379 Comment: - Wants to do the thyroid ultrasound as outpt and f/u in [facility] (6) Nicotine dependence Current Visit: Yes Status: Acute Code(s): F17.200 - NICOTINE DEPENDENCE, UNSPECIFIED, UNCOMPLICATED SNOMED Code(s): 57470831 Comment: - NRT (7) Anxiety Current Visit: Yes Status: Acute Code(s): F41.9 - ANXIETY DISORDER, UNSPECIFIED SNOMED Code(s): 88789016 Comment: - Started on Lorazepam, wean as able - Possible Chantix on d/c (8) DVT prophylaxis Current Visit: Yes Status: Acute Code(s): Z29.9 - ENCOUNTER FOR PROPHYLACTIC MEASURES, UNSPECIFIED SNOMED Code(s): 488638701 Comment: - Lovenox (9) Full code status Current Visit: Yes Status: Acute Code(s): Z78.9 - OTHER SPECIFIED HEALTH STATUS SNOMED Code(s): 505479781 Status and Disposition: Inpatient, xfer to 4S tele Needs work note
[2019-03-30] MEDS: Nicotine PATCH 21 MG/24 HR* PATCH TRANSDERM SCH (09:53)
[2019-03-30] MEDS: LORazepam TAB(*) 0.5 MG PO PRN (10:12)
[2019-03-30] MEDS ORDERED: Spiriva Inhaler DEVICE* 1 EACH DEVICE INH SCH (17:00)
[2019-03-30] MEDS: guaiFENesin ER TAB 600 MG PO SCH (17:03)
[2019-03-30] MEDS: hydrOXYzine HCL TAB* 10 MG PO PRN ×2 (18:39→23:22)
[2019-03-30] MEDS: Nicotine Patch Removal NOTE PATCH OFF SCH (19:11)
[2019-03-30] MEDS: Mometasone/Formoter 200/5 MDI INH SCH (20:10)
[2019-03-31] MEDS: Albuterol 2.5 MG/3 ML NEB.SOL* (0.083%) INH SCH ×4 (01:26→22:14)
[2019-03-31] MEDS: cefTRIAXone(*) 1 GM in NS 0.9% 50 ML* 50 ML IVPB SCH (05:22)
[2019-03-31] MEDS: Azithromycin IV(*) 250 MG in NS 0.9% 250 ML* 250 ML IVPB SCH (05:52)
[2019-03-31] MEDS: Enoxaparin(*) 40 MG/0.4 ML SYR SUBCUT SCH (05:55)
[2019-03-31 07:09] LABS: ABS Lymphocytes 3.1 10^3/ul (1.0-4.8); ABS Monocytes 0.9 10^3/ul (0-0.8); ABS Neutrophils 4.6 10^3/ul (1.5-7.7); Eosinophil % 0.1 %; Hematocrit 39 % (35-47); Hemoglobin 12.9 g/dL (12.0-16.0); Lymphocyte % 35.5 %; Mean Corpuscular HGB Conc 34 g/dL (31-36); Mean Corpuscular Hemoglobin 33 pg (27-31); Mean Corpuscular Volume 99 fL (80-97); Mean Platelet Volume 7.2 fL (7.4-10.4); Nucleated Red Blood Cells % 0.1; Platelet Count 253 10^3/uL (150-450); Red Cell Distribution Width 13 % (10.5-15); White Blood Count 8.7 10^3/uL (3.5-10.8)
[2019-03-31 07:22] LABS: BUN/Creatinine Ratio 23.5 (8-20); Calcium 8.9 mg/dL (8.6-10.3); EGFR African American 149.4 (>60); EGFR Non-African American 123.4 (>60); Potassium 3.7 mmol/L (3.5-5.0)
[2019-03-31] MEDS: guaiFENesin ER TAB 600 MG PO SCH ×2 (07:31→20:53)
[2019-03-31] MEDS: predniSONE TAB* 50 MG PO SCH (07:31)
[2019-03-31] MEDS: Nicotine PATCH 21 MG/24 HR* PATCH TRANSDERM SCH (07:32)
[2019-03-31] MEDS: Tiotropium CAP.INH* CAP.INH/18 MCG (USE ORDER SET !) INH SCH (08:30)
[2019-03-31] MEDS: Mometasone/Formoter 200/5 MDI INH SCH ×2 (08:30→22:12)
[2019-03-31] MEDS ORDERED: Spiriva Inhaler DEVICE* 1 EACH DEVICE INH ONE (09:00)
--- NOTE | 2019-03-31 09:30 | PN ---
Subjective Date of Service: 03/31/19 Interval History: HD # 5 on 03/31 58F PMH heavy tob use who presented with new hypoxic resp failure with likely underlying COPD and acute exacerbation possibly 2/2 to CAP requiring vapotherm, undx until this point, xfer out of ICU on 03/29 Overnight, no acute events, on 4L NC other VSS, tried to wean to 2L, couldn't tolerate, did walk with PT O2 sats as follows last night O2 at rest: 93% 5L, 91% RA O2 with ambulation: 91% 6L, 85% RA (50 feet) TODAY: Resting 4L->titrate to 3L, ambulating likely still needs 4L Labs: Mild hypercarbia This morning seen with feeling better, still coughing and tight but improving. Discussed discharged planning. No CP no GI or MSK complaints Objective Active Medications: Acetaminophen (Tylenol Tab*) 650 mg PO Q4H PRN PRN Reason: FEVER/PAIN Albuterol (Ventolin 2.5 Mg/3 Ml Neb.Margarita*) 2.5 mg INH [id number] AWAKE [facility] Last Admin: 03/31/19 08:29 Dose: 2.5 mg Albuterol/Ipratropium (Duoneb (Albuterol 2.5 Mg/Ipratropium 0.5 Mg)) 1 neb INH Q4H PRN PRN Reason: SOB/WHEEZING Enoxaparin Sodium (Lovenox(*)) 40 mg SUBCUT Q24H [facility] Last Admin: 03/31/19 05:55 Dose: 40 mg Guaifenesin (Mucinex*) 1,200 mg PO BID [facility] Last Admin: 03/31/19 07:31 Dose: 1,200 mg Hydroxyzine HCl (Atarax Tab*) 10 mg PO Q4H PRN PRN Reason: ANXIETY Last Admin: 03/30/19 23:22 Dose: 10 mg Azithromycin 250 mg/ Sodium (Chloride) 250 mls @ 250 mls/hr IVPB Q24H [facility] Last Admin: 03/31/19 05:52 Dose: 250 mls/hr Ceftriaxone Sodium 1 gm/ (Sodium Chloride) 50 mls @ 200 mls/hr IVPB Q24H [facility] Last Admin: 03/31/19 05:22 Dose: 200 mls/hr Miscellaneous (Ativan Pyxis Williamson) 1 ea N/A .ATIVAN IV WILLIAMSON PRN PRN Reason: PYXIS WILLIAMSON Miscellaneous (Ativan Pyxis Williamson) 1 ea N/A .ATIVAN IV WILLIAMSON PRN PRN Reason: PYXIS WILLIAMSON Mometasone Furoate/Formoterol Fumar (Dulera 200/5 Mdi*) 2 puff INH BID [facility] Last Admin: 03/31/19 08:30 Dose: 2 puff Nicotine (Nicotine Patch 21 Mg/24 Hr*) 1 patch TRANSDERM DAILY@0800 [facility] Last Admin: 03/31/19 07:32 Dose: 1 patch Nicotine Polacrilex (Nicotine Gum*) 4 mg PO Q2H PRN PRN Reason: CRAVING Ondansetron HCl (Zofran Inj*) 4 mg IV Q6H PRN PRN Reason: NAUSEA Pharmacy Profile Note (Nicotine Patch Removal Note*) 1 note PATCH OFF 2100 [facility] Last Admin: 03/30/19 19:11 Dose: 1 note Prednisone (Deltasone Tab*) 50 mg PO DAILY [facility] Last Admin: 03/31/19 07:31 Dose: 50 mg Tiotropium Wenden (Spiriva Cap.Inh*) 1 cap INH DAILY [facility] Last Admin: 03/31/19 08:30 Dose: 1 cap Vital Signs - 8 hr 03/31/19 03/31/19 03/31/19 03:35 07:30 07:37 Temperature 97.9 F 97.3 F Pulse Rate 81 78 Respiratory 16 16 20 Rate Blood Pressure 124/51 131/60 (mmHg) O2 Sat by Pulse 98 98 Oximetry 03/31/19 08:31 Temperature Pulse Rate 82 Respiratory 14 Rate Blood Pressure (mmHg) O2 Sat by Pulse 96 Oximetry Oxygen Devices in Use Now: Nasal Cannula Appearance: Thin woman in NAD Eyes: No Scleral Icterus Ears/Nose/Mouth/Throat: NL Teeth, Lips, Gums, Clear Oropharnyx Neck: NL Appearance and Movements; NL JVP Respiratory: Symmetrical Chest Expansion and Respiratory Effort, - - Diffuse E wheeze Cardiovascular: NL Sounds; No Murmurs; No JVD, RRR Abdominal: NL Sounds; No Tenderness; No Distention, No Hepatosplenomegaly Lymphatic: No Cervical Adenopathy Skin: No Rash or Ulcers Neurological: Alert and Oriented x 3 Result Diagrams: 03/31/19 06:42 03/31/19 06:42 Microbiology and Other Data: Microbiology 03/27/19 02:11 Aerobic Blood Culture - Preliminary Blood Venous No Growth Day 1 Anaerobic Blood Culture - Preliminary No Growth Day 1 03/27/19 02:11 Aerobic Blood Culture - Preliminary Blood Venous No Growth Day 1 Anaerobic Blood Culture - Preliminary No Growth Day 1 03/27/19 08:10 Legionella Urinary Antigen - Final Urine Negative Legionella Antigen Streptococcus pneumoniae Ag Screen - Final Negative S. pneumo Antigen 03/27/19 06:06 Nasal Screen MRSA (PCR) - Final Nasal Mrsa Not Detected EKG Data: Sinus tachycardia Assess/Plan/Problems-Billing Assessment: 58F PMH heavy tob use who presented with new hypoxic resp failure with likely underlying COPD and acute exacerbation possibly 2/2 to CAP requiring vapotherm initally, now out of ICU since 03/29 improving on NC - Patient Problems (1) Acute hypoxemic respiratory failure Current Visit: Yes Status: Acute Code(s): J96.01 - ACUTE RESPIRATORY FAILURE WITH HYPOXIA SNOMED Code(s): 058118893 Comment: - As per above likely COPD (formerly undx with no PFTS on file), exacerbation and possible CAP - Requiring Vapotherm, now on 5L NC - DC 04/01, have arranged pulm FU in [facility] (2) COPD exacerbation Current Visit: Yes Status: Acute Code(s): J44.1 - CHRONIC OBSTRUCTIVE PULMONARY DISEASE W (ACUTE) EXACERBATION SNOMED Code(s): 192657351 Comment: - Continue IV solumedrol 60q12, will deescelate to oral pred on 03/30 , now on pred 50 - Day 4/ on 03/31 Ceftriaxone, Azithromycin, change to PO tomorrow - Continue Duoneb, needs outpt optimization with LAMA/ICS inhaler therapy start tomorrow - Needs formal PFT on d/c - Counselled on smoking cessation (3) Pneumonia Current Visit: Yes Status: Acute Code(s): J18.9 - PNEUMONIA, UNSPECIFIED ORGANISM SNOMED Code(s): 588734115 Comment: - Mild leukocytosis on admission, not captured on imaging, clinically improving on abx, and will continue for antinflammatory properties - CTX Day 4/_-(5) Azithro Day 4/5 on 03/30 (4) Pulmonary nodules Current Visit: Yes Status: Acute Code(s): R91.8 - OTHER NONSPECIFIC ABNORMAL FINDING OF LUNG FIELD SNOMED Code(s): 298261947 Comment: - Seen on CT - Needs outpatient Pulmonary f/u for f/u imaging and eval for malignancy in the future - Wants to f/u at outpatient in the [facility].Can f/u with Dr Mckenna Swanson primary and Dr. Ng office in [place] (referrals placed today) (5) Thyroid nodule Current Visit: Yes Status: Acute Code(s): E04.1 - NONTOXIC SINGLE THYROID NODULE SNOMED Code(s): 561914022 Comment: - Wants to do the thyroid ultrasound as outpt and f/u in [facility] (6) Nicotine dependence Current Visit: Yes Status: Acute Code(s): F17.200 - NICOTINE DEPENDENCE, UNSPECIFIED, UNCOMPLICATED SNOMED Code(s): 23820279 Comment: - NRT (7) Anxiety Current Visit: Yes Status: Acute Code(s): F41.9 - ANXIETY DISORDER, UNSPECIFIED SNOMED Code(s): 56125242 Comment: - Started on Lorazepam, wean as able - Possible Chantix on d/c (8) DVT prophylaxis Current Visit: Yes Status: Acute Code(s): Z29.9 - ENCOUNTER FOR PROPHYLACTIC MEASURES, UNSPECIFIED SNOMED Code(s): 933951862 Comment: - Lovenox (9) Full code status Current Visit: Yes Status: Acute Code(s): Z78.9 - OTHER SPECIFIED HEALTH STATUS SNOMED Code(s): 220522412 Status and Disposition: DC tomorrow
[2019-03-31] MEDS: hydrOXYzine HCL TAB* 10 MG PO PRN ×3 (10:33→23:27)
[2019-03-31 16:10] LABS: TSH (Thyroid Stimulating Horm) 2.98 mcIU/mL (0.34-5.60)
--- NOTE | 2019-03-31 19:35 | DS ---
CC: [facility] Primary Care Office; Dr. Aly Gomez DISCHARGE SUMMARY: DATE OF ADMISSION: 03/27/19 ANTICIPATED DATE OF DISCHARGE: 04/01/19 PRIMARY CARE PROVIDER: [facility], particularly seen in the residency clinics by Dr. Cotto, supervised by Dr. Bridges. Dr Mckenna Swanson, [facility] BUILDING RENTAL MANAGER: Dr. Aly Gomez, patient's intended vegetable farmworker. PRIMARY DIAGNOSIS: Acute hypoxic respiratory failure. SECONDARY DIAGNOSES: Likely diagnosis of chronic obstructive pulmonary disease with no formal PFTs on file, community acquired pneumonia, pulmonary nodule, thyroid nodule, nicotine dependence. MEDICATIONS AT DISCHARGE: 1. Albuterol inhaler 1 puff inhaled q.4 hours p.r.n. for shortness of breath. 2. Albuterol ipratropium neb solution 1 neb q.4 hours p.r.n. for shortness of breath. 3. Fluticasone/salmeterol 250/50 one inhalation b.i.d. 4. Spiriva/tiotropium cap 1 cap inhaled daily. 5. Prednisone 40 mg p.o. daily for an additional 5 days status post discharge. 6. Nicotine patch 21 mg 1 patch apply transdermally. 7. Nicotine gum 4 mg p.o. q.2 hours p.r.n. for cravings. 8. Mucinex 1200 mg p.o. b.i.d. 9. Azithromycin 250 mg 1 tab p.o. daily for 1 days status post discharge. 10. Augmentin 875 mg p.o. b.i.d. to continue 1 day after discharge. Changes to medication on this admission are the addition of all medications, as the patient was on no medications prior to this admission. HISTORY OF PRESENT ILLNESS AND HOSPITAL COURSE: A 58-year-old female with no significant history aside from nicotine dependence, presented to the emergency room at [facility] on 03/27/19, who presented to the ER overnight with concern for subjective fevers and chills, productive cough and tachypnea. Per the patient and the family, she started with the sore throat 3 days prior to admission and progressively had more upper respiratory symptoms until the point where she began having worsening weakness, alternating chills, hot flashes , tachypnea, and some anxiety. In the emergency room, she was found to have an oxygen level 84% on room air and had a respiratory rate in the 30s. She required high-flow nasal cannula for increased work of breathing and the initial blood gas normal at 7.3, [id number], PO2 91, oxygen saturation 99% and initial labs notable for hyponatremia at 131. Otherwise, unremarkable CMP. Hospitalist team was asked to admit the patient for new acute hypoxic respiratory failure. Imaging done in the emergency room also included a chest thorax CTA which showed no pulmonary emboli, but multiple pulmonary nodules, the largest one in the right apex at 11 mm and a 6 mm pulmonary nodule in the right upper lobe and a 3.7 mm pulmonary nodule in the left upper lobe, also incidental possible thyroid nodule. A chest x-ray was done on 03/27/19 in the emergency room that showed stigmata of obstructive lung disease and diffuse interstitial markings and patchy infiltration in the mid upper lung zone of right lobe. She was admitted to the medical service and her hospital course by problems is as follows: 1. Hypoxic respiratory failure. The patient admitted to a long history of nicotine use and is presenting with likely COPD exacerbation and previously undiagnosed COPD. She also possibly has community acquired pneumonia with patchy infiltrates in right lung. She was started on high flow nasal cannula and placed in the ICU initially. She was started on IV steroids, azithromycin, ceftriaxone, and nebulizer treatments with rapid improvement and was able to be discharged out of the ICU by hospital day 2. She continued to have high oxygen requirements requiring 3 L at rest to sat at 92% and 4 L while ambulating to sat at 92%. She had no known oxygen requirements prior to this admission. By hospital day 5, the patient continued to feel more like herself and was stable to be discharged by hospital day 6 once oxygen had been arranged in the home as she still had 2 - 4 L nasal cannula requirement to maintain sats at 92%. 2. Likely COPD. The patient likely has diagnosis of COPD, though she has no formal PFTs on file. A pulmonology appointment with the [facility], Dr. Gomez 's office was made for 05/19/19 and formal PFTs should be explored in this patient to help best stratify her. Upon discharge, she will be optimized with triple inhaler therapy with long-acting muscarinic agents, long-acting beta agonist and inhaled corticosteroid and short-acting beta-agonist mainly with Spiriva, Symbicort, and Ventolin. Also, we will arrange for p.r.n. nebulizers to be delivered with nebulization machine. 3. Pulmonary nodules. These were seen incidentally on CTA done during emergency room course to rule out PE. She has multiple nodules that will need repeat CT scanning, notably with low dose lung CT, likely can be deferred to Pulmonology for management. She will be seen at 6-month followup to assess the stability of pulmonary nodules seen incidentally, although could get one sooner to determine baseline in new primary care setting. 4. Thyroid nodule. This was also seen incidentally on CTA. TSH , T3, and T4 were normal. Likely this needs to be re-ultrasonded and can be followed with ENT or other thyroid nodule management speciality in her primary care system on a nonurgent basis. 5. Anxiety. The patient had mild anxiety mostly related to shortness of breath during her hospital stay that was initially managed with benzodiazepines. She needed no p.r.n. antianxiety medications in the last 2 days of her hospitalization and once her reading had returned to closer to baseline, she felt quite comfortable. 6. Nicotine dependence. The patient upon admission was a current everyday smoker. She had a smoking history of 40 or more years and she smokes close to 2 packs per day. She also reports occasional alcohol use and denies any history or illicit drug use. She does work at a school. She lives with her who is a nonsmoker. The patient was offered nicotine replacement therapy and started on nicotine patches. Multiple conversations about the importance of cessation given her likely advanced COPD and emphysema were done while in the hospital and she is motivated to complete full cessation on discharge and wants to work with primary care to continue to focus on this. She would be open to Chantix if deemed appropriate by primary care. IMAGING AND DATA GATHERED DURING THIS HOSPITALIZATION: Labs on discharge: White blood cell count 8.7, hemoglobin 12.9, hematocrit 39, platelets 253. BMP with sodium of 140, potassium 3.7, carbon dioxide 33, BUN 12, creatinine 0.51, glucose 91. TSH pending. Troponin was 0.01 on admission. AST 21, ALT 13 on admission. Alkaline phosphatase 77 on admission. Lactic acid 1.7 on admission. Imaging done during this hospitalization: A CTA was performed on 03/27/19 that showed multiple pulmonary nodules in the following order; an 11 mm pulmonary nodule with irregular border in the right apex, a 6 mm pulmonary nodule in the right upper lobe, a 3.7 pulmonary nodule in the left upper lobe and soft tissues with the subcentimeter hypodense lesion in the left thyroid lobe which may be partially due to the beam hardening artifact; however, underlying thyroid nodule is not excluded. No PE was seen on this chest thorax CTA. Chest x-ray shows stigmata of chronic obstructive pulmonary disease and right hilar infiltrate on initial presenting chest x-ray 03/27/19. EKG was done, which showed sinus tachycardia with evidence of right atrial enlargement with no active signs of ischemia. CONSULTANTS DURING THIS HOSPITALIZATION: None. ITEMS TO FOLLOW UP ON POST DISCHARGE: 1. Respiratory failure likely secondary to pneumonia and undiagnosed COPD in the setting of acute exacerbation. The patient will be discharged 04/01 with antibiotics to be completed 04/02. She will have completed a full 7-day course of what is presumed to be community-acquired pneumonia. --The patient will need followup PFTs in 3 to 6 months status post discharge. --The patient is discharged with oxygen requirement and primary care needs to determine if oxygen is still needed at followup appointment by performing walking or ambulatory oxygen sats. Her oxygen saturation numbers at day of discharge are oxygen at rest 93% on 3 L nasal cannula and desaturates to 85% while ambulating without the assistance 4 L. At 4 L nasal cannula, while ambulating, she saturates at 91%. She is discharged on 3 L nasal cannula at rest and 4 L during ambulation at the time of discharge and may need prolonged steroid course as well as supportive oxygen to continue to heal from this inflammatory event. --Furthermore, the patient was discharged on 5 days of prednisone 40 mg. At the time of primary care followup, decision should be made to determine whether prednisone taper is appropriate or if the patient has improved significantly to her baseline not requiring taper therapy for steroids. 2. Pulmonary nodules. The patient will need baseline CT scan for multiple pulmonary nodules seen incidentally on CTA to determine this concerning 11 mm abnormal bordered pulmonary nodule. She has been arranged for pulmonary followup in the [facility] with Dr. Gomez. 3. Thyroid nodule? This is seen incidentally also on CTA and this is a questionable diagnosis. A repeat dedicated thyroid ultrasound can be pursued on a nonurgent basis. PHYSICAL EXAMINATION: On day of discharge, the patient is ambulating with oxygen support, voiding freely, tolerating diet, and generally feels well. She has diffuse E wheeze, but better air movement than prior to her admission. She will be discharged to her home with oxygen, supportive care with triple therapy , inhaled medications, oral prednisone, and a completed course of antibiotics. Furthermore, she will be supported with nicotine replacement therapy for ongoing nicotine dependence. DISPOSITION: Stable for discharge to home. TIME SPENT: Forty minutes was spent on the planning of this discharge with over half of that spent directly at the bedside providing direct patient care. Plan of care discussed with the patient and family with no further questions. She knows to return to the emergency room if worsening shortness of breath, fever, chills, or chest pain. If there are any questions about the care of this patient, please do not hesitate reach out and page the [facility] hospitalist team, particularly myself at my cell phone [phone]. [id number]/CPS #: [id number] MOLLY
[2019-03-31] MEDS: Nicotine Patch Removal NOTE PATCH OFF SCH (21:30)
[2019-04-01] MEDS: Albuterol 2.5 MG/3 ML NEB.SOL* (0.083%) INH SCH ×2 (01:02→07:11)
[2019-04-01 05:50] LABS: ABS Eosinophils 0.1 10^3/ul (0-0.6); ABS Lymphocytes 3.7 10^3/ul (1.0-4.8); ABS Monocytes 0.8 10^3/ul (0-0.8); ABS Neutrophils 3.8 10^3/ul (1.5-7.7); Hematocrit 38 % (35-47); Hemoglobin 12.8 g/dL (12.0-16.0); Lymphocyte % 44.1 %; Mean Corpuscular HGB Conc 33 g/dL (31-36); Mean Corpuscular Hemoglobin 33 pg (27-31); Mean Corpuscular Volume 99 fL (80-97); Mean Platelet Volume 7.1 fL (7.4-10.4); Nucleated Red Blood Cells % 0.1; Platelet Count 267 10^3/uL (150-450); Red Cell Distribution Width 13 % (10.5-15); White Blood Count 8.4 10^3/uL (3.5-10.8)
[2019-04-01] MEDS: cefTRIAXone(*) 1 GM in NS 0.9% 50 ML* 50 ML IVPB SCH (05:54)
[2019-04-01 06:06] LABS: Calcium 9.1 mg/dL (8.6-10.3); EGFR African American 136.9 (>60); EGFR Non-African American 113.1 (>60); Potassium 3.7 mmol/L (3.5-5.0)
[2019-04-01] MEDS: Azithromycin IV(*) 250 MG in NS 0.9% 250 ML* 250 ML IVPB SCH (06:26)
[2019-04-01] MEDS: Enoxaparin(*) 40 MG/0.4 ML SYR SUBCUT SCH (06:31)
[2019-04-01] MEDS: Tiotropium CAP.INH* CAP.INH/18 MCG (USE ORDER SET !) INH SCH (07:11)
[2019-04-01] MEDS: Mometasone/Formoter 200/5 MDI INH SCH (07:11)
[2019-04-01] MEDS: guaiFENesin ER TAB 600 MG PO SCH (08:08)
[2019-04-01] MEDS: predniSONE TAB* 50 MG PO SCH (08:09)
[2019-04-01] MEDS: Nicotine PATCH 21 MG/24 HR* PATCH TRANSDERM SCH (08:09)
[2019-04-01 08:14] VITALS: BP 124/67
--- NOTE | 2019-04-02 00:37 | DS ---
DATES OF ADMISSION AND DISCHARGE NOW INCLUDED ON THIS REPORT ADDITIONAL ADDENDUM NOW INCLUDED ON THIS REPORT CC: Dr. Iván Bridges; Dr. Aly Gomez * DISCHARGE SUMMARY: DATE OF ADMISSION: 03/27/19 DATE OF DISCHARGE: 04/01/19 PRIMARY CARE PROVIDER: Dr. Iván Bridges. STORE WORKER: Dr. Aly Gomez. ADDENDUM NO.1: The patient was seen and evaluated at bedside on the 04/01/19. She states that she was feeling well. Her shortness breath was much improved and she was anxious for discharge. PHYSICAL EXAMINATION: The patient has vital signs that include a temperature of 98.1, heart rate of 80, respiratory rate is 18, oxygen saturation 97% on 3 L nasal cannula, blood pressure is 124/67. CVS: S1, S2. Regular rate and rhythm. Chest: Breath sounds present bilaterally diminished with no added sounds. Extremities: No edema. Neuro: She is alert and oriented x3. Able to movement all 4 extremities. The patient requested to continue hydroxyzine as outpatient. She states that medication worked well while in the hospital, so prescription for hydroxyzine 10 mg p.o. 4 times a day as needed for anxiety, was sent to [facility]. I also contacted case management director, Camelia Gilbert, who made arrangements with [facility], so her oxygen can be delivered as well as her nebulizer treatment. The patient is medically stable for discharge today and for more details about her hospital stay, I refer you to Dr. Venessa Méndez's discharge summary from . ADDENDUM NO.2: DISPOSITION: To home. A1- [id number]/CPS #: [id number] - DICT 04/01/19 1923 TRANS 04/02/19 0016 A2- [id number]/CPS #: [id number] - DICT 04/04/19 0722 TRANS 04/04/19 0951 MOLLY
--- NOTE | 2019-04-04 10:12 | DS ---
DISCHARGE SUMMARY: ADDENDUM: DISPOSITION: To home. [id number]/[facility] #: [id number] MOLLY
== END 2019-04-01 10:40 | disposition home or self-care (01) | DRG 140 ==
LOC: ED 01:13 → ICU 04:46 → MEDTELE 03-29 10:39
PROVIDERS: ADMIT Nurse Practitioner Family; ATTEND Internal Medicine
DX: J44.1 Chronic obstructive pulmonary disease with (acute) exacerbation (principal); J96.01 Acute respiratory failure with hypoxia; J18.9 Pneumonia, unspecified organism; E87.1 Hypo-osmolality and hyponatremia; J44.0 Chronic obstructive pulmonary disease with (acute) lower respiratory infection; F41.9 Anxiety disorder, unspecified; F17.210 Nicotine dependence, cigarettes, uncomplicated; R91.8 Other nonspecific abnormal finding of lung field; E04.1 Nontoxic single thyroid nodule; Z72.89 Other problems related to lifestyle; Z99.81 Dependence on supplemental oxygen
CPT/HCPCS: 36415; 36600; 71046; 71275; 80048; 80053; 82803; 83605; 84443; 84484; 85025; 87040; 87641; 87899; 93005; 94640; 99285; 99406; A9270-GY; J0456; J0696; J1650; J2060; J2920; J2930; J7512; J7611; Q9967